=== PATIENT | male | born 1960 | race Caucasian/White ===

== ENCOUNTER 2020-06-08 06:04 | Day surgery (SDC) | payer OTHER ==
[~2020-06-08] VITALS: Ht 172.7 cm; Wt 62.3 kg
[2020-06-08] MEDS ORDERED: SODIUM CHLORIDE 0.9% 1,000 ML ONE (06:26)
[2020-06-08] MEDS ORDERED: SODIUM CHLORIDE 0.9% 1,000 ML IV ONE (07:00)
[2020-06-08 07:01] LABS: COVID AG,FIA SOURCE NASOPHARYNGEAL
[2020-06-08 07:19] LABS: BASOPHILS % (AUTO) 0.8 % (0.0-2.0); EOSINOPHILS % (AUTO) 1.6 % (1.0-6.0); HEMATOCRIT 40.3 % (41-53); HEMOGLOBIN 13.2 g/dL (13.5-17.5); LYMPHOCYTES # (AUTO) 1.5 K/uL (1.0-4.8); LYMPHOCYTES % (AUTO) 27.3 % (22.0-44.0); MEAN CORPUSCULAR HGB CONC 32.8 G/dL (31.0-37.0); MEAN CORPUSCULAR VOLUME 82 fL (80-100); MONOCYTES # (AUTO) 0.6 K/uL (0.1-1.0); MONOCYTES % (AUTO) 10.6 % (2.0-9.0); NEUTROPHILS # (AUTO) 3.2 K/uL (1.8-7.7); NEUTROPHILS % (AUTO) 59.7 % (40.0-70.0); PLATELET COUNT (AUTO) 171 K/uL (150-450); RED CELL DISTRIBUTION WIDTH 20.2 % (11.5-14.5)
[2020-06-08 07:29] LABS: GLUCOMETER DEV NAME(LOC) SDS.; GLUCOSE,POINT OF CARE 96 MG/DL (70-110)
[2020-06-08 07:30] LABS: ANION GAP 9 mmol/L (8-16); CALCIUM, TOTAL 9.3 mg/dL (8.8-10.5); CARBON DIOXIDE 28 mmol/L (22-29); CHLORIDE 108 mmol/L (98-107); CREATININE 0.86 mg/dL (0.60-1.30); GLOMERULAR FILTR. RATE CALC > 60 mL/min (>60); GLUCOSE,RANDOM 100 mg/dL (70-110); SODIUM SERUM 145 mmol/L (136-145); UREA NITROGEN, BLOOD 16 mg/dL (7-18)
[2020-06-08 07:36] LABS: ALANINE AMINOTRANSFERASE 19 U/L (12-78); ALKALINE PHOSPHATASE 72 U/L (46-116); ASPARTATE AMINOTRANSFERASE 16 U/L (15-37); BILIRUBIN,TOTAL 0.5 mg/dL (0.1-1.0)
[2020-06-08 07:44] LABS: INR 1.1 (0.9-1.1); PROTHROMBIN TIME 11.2 SEC (9.4-11.6)
[2020-06-08] MEDS ORDERED: ROSU20TA23 PO (08:12)
[2020-06-08] MEDS ORDERED: FERR325T22 PO (08:12)
[2020-06-08] MEDS ORDERED: NITR0.4T50 SL (08:12)
[2020-06-08] MEDS ORDERED: LISI-809 PO (08:12)
[2020-06-08] MEDS ORDERED: FURO20TA4 PO (08:12)
[2020-06-08] MEDS ORDERED: AMIO200T6 PO (08:12)
[2020-06-08] MEDS ORDERED: ASPI-1111 PO (08:12)
[2020-06-08] MEDS ORDERED: METO-391 PO (08:12)
[2020-06-08] MEDS ORDERED: LIDOCAINE/PF 1% 30 ML VIAL ONE (08:42)
[2020-06-08] MEDS ORDERED: IOHEXOL 300 MG/ML 50 ML VIAL ONE (08:42)
[2020-06-08] MEDS ORDERED: HEPARIN SODIUM 1000 UNITS/NS 1,000 ML ONE (08:42)
[2020-06-08] MEDS ORDERED: SODIUM BICARBONATE 50 MEQ/50 ML VIAL ONE (08:42)
[2020-06-08] MEDS ORDERED: IOHEXOL 300 MG/ML 100 ML VIAL ONE (08:42)
[2020-06-08 08:58] VITALS: BP 140/94
[2020-06-08] MEDS ORDERED: MIDAZOLAM HCL 2 MG/2 ML VIAL ONE (09:25)
[2020-06-08] MEDS ORDERED: FentaNYL CITRATE PF 100 MCG/2 ML VIAL ONE (09:25)
[2020-06-08] MEDS ORDERED: LIDOCAINE 1% 30 ML/SOD BICARB 8.4% 4 ML SQ ONE (09:30)
[2020-06-08] MEDS ORDERED: MIDAZOLAM HCL 2 MG/2 ML VIAL IVP ONE (09:30)
[2020-06-08] MEDS ORDERED: HEPARIN SODIUM 1000 UNITS/NS 1,000 ML IARTER ONE (09:30)
[2020-06-08] MEDS ORDERED: IOHEXOL 300 MG/ML 50 ML VIAL IARTER ONE (09:30)
[2020-06-08] MEDS ORDERED: FentaNYL CITRATE PF 100 MCG/2 ML VIAL IVP ONE (09:30)
[2020-06-08] MEDS ORDERED: IOHEXOL 300 MG/ML 100 ML VIAL IARTER ONE (09:30)
[2020-06-08 09:54] VITALS: BP 140/102
== END 2020-06-08 14:20 | disposition home or self-care (01) ==
LOC: CATHLAB 06:04
PROVIDERS: ATTEND Internal Medicine Cardiovascular Disease
DX: I25.10 Atherosclerotic heart disease of native coronary artery without angina pectoris (principal); I25.5 Ischemic cardiomyopathy; E78.5 Hyperlipidemia, unspecified; I10 Essential (primary) hypertension; I25.2 Old myocardial infarction; Z98.890 Other specified postprocedural states; Z86.73 Personal history of transient ischemic attack (TIA), and cerebral infarction without residual deficits; Z79.82 Long term (current) use of aspirin; Z79.899 Other long term (current) drug therapy
CPT/HCPCS: 36415; 80053; 82962; 85025; 85610; 85730; 87426; 93458; 99152; C9803; J1644; J2250; J3010; J3490 ×2; J7030; Q9967 ×2; 93005